=== PATIENT | female | born 1980 | race Caucasian/White ===

== ENCOUNTER → 2020-02-24 13:56 | Outpatient (CLI) | payer OTHER, SELFPAY ==
[2020-02-26 17:17] LABS: COVID19 Sendout Not Detected (Not Detect)
== END ==
PROVIDERS: PCP Family Medicine; Visit Provider Nurse Practitioner
DX: Z11.59 Encounter for screening for other viral diseases (principal)
CPT/HCPCS: 87635

== ENCOUNTER 2020-02-27 12:14 | Outpatient (CLI) | payer OTHER, SELFPAY ==
[2020-02-27] VITALS (12 sets, daily range): BP systolic 98–139; BP diastolic 65–94; PULSE 62–96; RESP 16–23; TEMP 36.2; O2SAT 99–100
--- NOTE | 2020-02-27 12:16 | DI.RAD.S_ITS ---
PROCEDURE: PAIN L/S TRANSFORAMINAL INJECT INDICATIONS: SPONDYLOSIS COMPARISON: [facility], [facility], MRI L-SPINE W/O CONTRAST, 12/16/2019, 7:34. [facility], [facility], XR L-SPINE 4-6V, 11/26/2019, 11:22. FINDINGS: Fluoroscopic spot filming was performed to verify placement of a spinal needle at the L5-S1 level, as labeled on the films. Appropriate location of the needle tip was confirmed by injection of iodinated contrast. IMPRESSION: No significant intraprocedural abnormality. Dictated by: Julio Benedict M.D. on 02/27/2020 at 13:29 Approved by: Julio Benedict M.D. on 02/27/2020 at 13:35
[2020-02-27] MEDS: fentaNYL 100 MCG/2 ML INJ 50 MCG IV (13:21)
[2020-02-27] MEDS: MIDAZOLAM 5 MG/5 ML VIAL IV (13:21)
[2020-02-27] MEDS: IOPAMIDOL 15 ML VIAL 3 ML INJ (13:27)
[2020-02-27] MEDS: BUPIVACAINE 0.25% (PF) VIAL 2 ML INJ (13:28)
[2020-02-27] MEDS: BETAMETHASONE 30 MG/5 ML MDV 6 MG INJ (13:28)
[2020-02-27] MEDS: DEXAMETHASONE 10 MG/ML VIAL 20 MG INJ (13:29)
--- NOTE | 2020-02-27 13:36 | PM.PROC.IR.1 ---
Date/Time/Diagnoses Date of procedure: 02/27/20 Time of procedure: 13:36 Pre-procedure diagnosis: 1. FORAMINAL STENOSIS WITH LE SYMPTOMS Post-procedure diagnosis: same Procedure Notes Procedure: 1. FLUOROSCOPICALLY GUIDED CONTRAST CONTROLLED TRANSFORAMINAL EPIDURAL STEROID INJECTION - RIGHT L5/S1 TFESI Indications: Vivi is referred by for treatment of Foraminal Stenosis with right LE Symptoms Physician: Ty Mock Total Fluoroscopy time (seconds): 10 Total sedation minutes: 13 Complications: none Procedure in detail & Post-procedure care: FINDINGS Foraminal Nerve Root Compression secondary to disc disease and facet hypertrophy DESCRIPTION OF PROCEDURE Following review of allergy and review of potential side effects and complications, including, but not necessarily limited to, infection, allergic reaction, local tissue breakdown, stroke, temporary or permanent nerve injury, paralysis, and possible , the patient indicated that the patient understood and agreed to proceed. An informed consent document was signed by the patient, witnessed by a nurse, and placed in the patient's chart. Additionally, other treatment options including medications, modalities, and physical therapy were reviewed with the patient. After review of previous anaesthesic history and IV conscious sedation the patient was deemed safe to proceed with today?s procedure with IV conscious sedation as ASA class II designation. Safety time-out was performed to confirm patient ID, procedure to be performed and site of procedure. IV sedation was accomplished with a combination of 2mg of Versed and 50mcg of Fentanyl was administered by the RN after DO order, titrated to patient comfort during the course of the procedure while the patient remained responsive to all verbal commands In the prone position following sterile prep and drape of the lumbar region, the right L5/S1 posterior neuroforamen was identified fluoroscopically. The skin was anesthetized via a 25-gauge 1.5-inch needle with 1% lidocaine solution. At this point, a 25-gauge 3.5-inch spinal needle was atraumatically introduced and advanced under fluoroscopic guidance through the posterior right L5/S1 neuroforamen to approximately the anterior aspect of the canal. Depth was confirmed on lateral view. Following negative aspiration, injection of approximately 1.5cc of Isovue 200 under live fluoroscopy in the AP view confirmed excellent flow along the nerve root, into the epidural space without vascular or intrathecal uptake observed Radiological data, including multiple fluoroscopic views of the lumbosacral spine, reveal a spinal needle at the right L5/S1 posterior neuroforamen. Subsequent views show flow of contrast material flowing superiorly and inferiorly along the nerve root confirming epidural flow. Subsequently, a test dose of 1.5cc of 1% lidocaine solution was administered and patient was observed for two minutes for signs or symptoms of complications, including abdominal pain, shortness of breath, bilateral upper or lower extremity weakness, nausea and vomiting, prior to steroid injection. At this point, a total of 3cc or 20mg of dexamethasone and 6mg betamethasone was injected without incident. The procedure tolerated the procedure well without signs or symptoms of complications prior to transfer to the recovery area continued monitoring without incident. The patient was then transferred to the recovery area where they were observed for an appropriate time after the injection. The patient reported a VAS score of 7 prior to the procedure and a post-procedure VAS of 0. POST OP INSTRUCTIONS The patient was provided a Pain Log to continue to record their response to the target-specific procedure prior to follow-up visit with their referring physician. Additionally, specific post-injection care instructions and a contact number to our office were provided if concerns arise regarding possible complications associated with the procedure are suspected.
--- NOTE | 2020-02-27 14:40 | PC.NURSE ---
Dr Mock at bedside for patient. VSS, no nausea. balanced and steady gait tested. DC home.
== END 2020-02-27 14:40 | disposition home or self-care (01) ==
PROVIDERS: PCP Family Medicine; Referring Provider Physical Medicine & Rehabilitation; Visit Provider Physical Medicine & Rehabilitation
DX: M48.07 Spinal stenosis, lumbosacral region (principal); M51.17 Intervertebral disc disorders with radiculopathy, lumbosacral region
CPT/HCPCS: 64483; 99152; J0702; J1100; J2250; J3010

== ENCOUNTER → 2020-06-23 12:48 | Outpatient (CLI) | payer OTHER, SELFPAY ==
[2020-06-23 14:39] LABS: COVID19 -Nasal RAPID Negative (Negative)
== END ==
PROVIDERS: PCP Family Medicine; Visit Provider Physical Medicine & Rehabilitation
DX: Z01.812 Encounter for preprocedural laboratory examination (principal); Z20.822 Contact with and (suspected) exposure to COVID-19
CPT/HCPCS: 87635; C9803

== ENCOUNTER 2020-06-25 14:48 | Outpatient (CLI) | payer OTHER, SELFPAY ==
[2020-06-25] VITALS (7 sets, daily range): BP systolic 119–142; BP diastolic 68–83; PULSE 63–69; RESP 14–21; TEMP 36.8; O2SAT 99–100
--- NOTE | 2020-06-25 14:50 | DI.RAD.S_ITS ---
PROCEDURE: PAIN L/S FACET INJ/BLK 1ST LAURENT COMPARISON: None. INDICATIONS: SPONDYLOSIS FINDINGS: Access needles identified at the bilateral L4-L5 and L5-S1 facet joints. IMPRESSION: Access needles at the L4-L5 and L5-S1 facet joints. Dictated by: Michelle Sullivan MD, PhD on 06/25/2020 at 16:17 Approved by: Michelle Sullivan MD, PhD on 06/25/2020 at 16:18
[2020-06-25] MEDS: ONDANSETRON 4 MG/2 ML INJ IV (15:41)
[2020-06-25] MEDS: MIDAZOLAM 5 MG/5 ML VIAL IV (15:41)
[2020-06-25] MEDS: IOPAMIDOL 15 ML VIAL 3 ML INJ (15:46)
[2020-06-25] MEDS: BETAMETHASONE 30 MG/5 ML MDV 12 MG INJ (15:47)
[2020-06-25] MEDS: BUPIVACAINE 0.5% (PF) VIAL 5 ML INJ (15:47)
[2020-06-25] MEDS: LIDOCAINE 1% 20 ML 10 ML INJ (15:47)
--- NOTE | 2020-06-25 16:03 | P.PCN_ITS ---
Date/Time/Diagnoses Date of procedure: 06/25/20 Time of procedure: 16:03 Pre-procedure diagnosis: 1. FACET ARTHROPATHY 2. AXIAL LBP 3. MULTILEVEL DDD Post-procedure diagnosis: same Procedure Notes Procedure: 1. FLUOROSCOPICALLY GUIDED CONTRAST CONTROLLED FACET JOINT INJECTIONS BILATERAL L4/5, L5/S1 Indications: Vivi is referred by Dr. Givens for treatment of Axial LBP Physician: Ty Mock Total Fluoroscopy time (seconds): 12 Total sedation minutes: 16 Complications: none Procedure in detail & Post-procedure care: FINDINGS Multilevel Facet Arthropathy with Clinically significant axial LBP DESCRIPTION OF PROCEDURE Fluoroscopically guided, contrast-controlled bilateral L4/5, L5/S1 facet joint injections. Following review of allergy and review of potential side effects and complications, including, but not necessarily limited to, infection, allergic reaction, local tissue breakdown, stroke, temporary or permanent nerve injury, paralysis, and possible , the patient indicated that the patient understood and agreed to proceed. An informed consent document was signed by the patient, witnessed by a nurse, and placed in the patient's chart. Additionally, other treatment options including medications, modalities, and physical therapy were reviewed with the patient. After review of previous anaesthesic history and IV conscious sedation the patient was deemed safe to proceed with today?s procedure with IV conscious sedation as ASA class II designation. Safety time-out was performed to confirm patient ID, procedure to be performed and site of procedure. IV sedation was accomplished with a combination of 3mg of Versed was administered by the RN after DO order, titrated to patient comfort during the course of the procedure while the patient remained responsive to all verbal commands In the prone position, following sterile prep and drape of the lumbar region, the posterior aspect of the L4/5, L5/S1 facet joints were identified fluoroscopi martinez. The skin was anesthetized via a 25-gauge 1.5inch needle with 1% lidocaine solution into the corresponding facet joints. At this point, a 22- gauge 3.5-inch spinal needle was atraumatically introduced and advanced under fluoroscopic guidance into the corresponding facet joints. Following negative aspiration, injections of approximately 0.2cc of Isovue 200 confirmed interarticular placement without vascular uptake. The identical procedure was then performed at the L4/5, L5/S1 facet joints on the left. Radiological data, including multiple fluoroscopic views of the lumbosacral spine, reveal a spinal needle at the L4/5, L5/S1 facet joints bilaterally. Subsequent views show flow of contrast material both superiorly and inferiorly within the joint space without vascular or intrathecal uptake. At this point, a total of 0.5cc including a mixture of 0.25cc Marcaine and 0.25cc betamethasone was injected without complication into each of the corresponding facet joints. The patient tolerated the procedure well without signs or symptoms of complications prior to transfer to the recovery area continued monitoring without incident. The patient was then transferred to the recovery area where they were observed for an appropriate period of time after the injection. The patient reported a VAS score of 7 prior to the procedure and a post- procedure VAS of 0. POST OP INSTRUCTIONS The patient was provided a Pain Log to continue to record their response to the target-specific procedure prior to follow-up visit with their referring physician. Additionally, specific post-injection care instructions and a contact number to our office were provided if concerns arise regarding possible complications associated with the procedure are suspected.
== END 2020-06-25 16:23 | disposition home or self-care (01) ==
PROVIDERS: PCP Family Medicine; Referring Provider Physical Medicine & Rehabilitation; Visit Provider Physical Medicine & Rehabilitation
DX: M47.817 Spondylosis without myelopathy or radiculopathy, lumbosacral region (principal); M47.816 Spondylosis without myelopathy or radiculopathy, lumbar region; M54.5 Low back pain; M51.36 Other intervertebral disc degeneration, lumbar region; M51.37 Other intervertebral disc degeneration, lumbosacral region
CPT/HCPCS: 64493; 64494; 99152; J0702; J2250; J2405; J3010

== ENCOUNTER → 2021-01-25 07:45 | Outpatient (CLI) | payer OTHER, SELFPAY ==
[2021-01-25 14:27] LABS: COVID19 -Nasal RAPID Negative (Negative)
== END ==
PROVIDERS: PCP Family Medicine; Visit Provider Physical Medicine & Rehabilitation
DX: Z20.822 Contact with and (suspected) exposure to COVID-19 (principal)
CPT/HCPCS: 87635; C9803

== ENCOUNTER 2021-01-26 13:42 | Outpatient (CLI) | payer OTHER, SELFPAY ==
[2021-01-26] VITALS (9 sets, daily range): BP systolic 116–165; BP diastolic 72–102; PULSE 66–87; RESP 8–21; TEMP 36.9; O2SAT 97–100
--- NOTE | 2021-01-26 13:46 | DI.RAD.S_ITS ---
PROCEDURE: PAIN L/S FACET INJ/BLK 1ST LAURENT COMPARISON: [facility], XA, PAIN L/S FACET INJ/BLK 1ST LAURENT, 06/25/2020, 15:45. INDICATIONS: SPONDYLOSIS FINDINGS: Bilateral L4, L5 and S1 needle localization has been performed for medial branch block ablation procedures bilaterally, 6 separate sites, involving L4, L5 and S1 nerve roots. IMPRESSION: Successful needle tip localization for bilateral medial branch block procedures. Dictated by: Delmer Waldrop M.D. on 01/26/2021 at 15:38 Approved by: Delmer Waldrop M.D. on 01/26/2021 at 15:38
[2021-01-26] MEDS: ONDANSETRON 4 MG/2 ML INJ IV (14:30)
[2021-01-26] MEDS: MIDAZOLAM 5 MG/5 ML VIAL IV (14:35)
[2021-01-26] MEDS: fentaNYL 100 MCG/2 ML INJ 50 MCG IV (14:35)
[2021-01-26] MEDS: LIDOCAINE 1% 20 ML 10 ML INJ (14:39)
[2021-01-26] MEDS: BUPIVACAINE 0.5% (PF) VIAL 10 ML INJ (14:40)
[2021-01-26] MEDS: IOPAMIDOL 15 ML VIAL 3 ML INJ (14:41)
--- NOTE | 2021-02-02 08:09 | P.PCN_ITS ---
Date/Time/Diagnoses Date of procedure: 01/26/21 Time of procedure: 14:30 Pre-procedure diagnosis: 1. FACET ARTHROPATHY Post-procedure diagnosis: same Procedure Notes Procedure: 1. BILATERAL- L4, L5 and S1 DIAGNOSTIC MB BLOCKS with LA Anesthetic Indications: Vivi is referred by Dr. Givens for treatment of Bilateral Axial LBP. Physician: Ty Mock Total Fluoroscopy time (seconds): 14 Total sedation minutes: 18 Complications: none Procedure in detail & Post-procedure care: DESCRIPTION OF PROCEDURE Fluoroscopically guided, contrast-controlled bilateral L4, L5 and S1 medial branch blocks with 0.5cc of 0.5% Marcaine. Following review of allergy and review of potential side effects and complications, including, but not necessarily limited to, infection, allergic reaction, local tissue breakdown, nerve injury, paralysis, stroke and possible , the patient indicated that the patient understood and agreed to proceed. An informed consent document was signed by the patient, witnessed by a nurse, and placed in the patient's chart. After review of previous anaesthesic history and IV conscious sedation the patient was deemed safe to proceed with today's procedure with IV conscious sedation as ASA class II designation. Safety time-out was performed to confirm patient ID, procedure to be performed and site of procedure. IV sedation was accomplished with a combination of 3mg of Versed and 50mcg of Fentanyl was administered by the RN after DO order, titrated to patient comfort during the course of the procedure while the patient remained responsive to all verbal commands In the prone position, following sterile prep and drape of the lumbar region, the right L4, L5 and S1 anatomical location of the medial branch of the dorsal ramus was identified fluoroscopically. Subsequently an anesthetic skin wheal using 1% lidocaine solution was initiated at each of the anatomical spots. Subsequently then a 22-gauge 3.5-inch spinal needle was atraumatically introduced and advanced under fluoroscopic guidance at each of the corresponding sites at the right L4, L5 and S1 MB. After negative aspiration, 0.2cc of Isovue 200 was injected, confirming placement without vascular or intrathecal uptake. Subsequently then 0.5cc of 0.5% Marcaine solution was injected at each of the corresponding sites at the right L4, L5 and S1 medial branch locations. The identical procedure was replicated on the left. The patient tolerated the procedure well without signs or symptoms of complications prior to transfer to the recovery area continued monitoring without incident. Post-procedure, the patient was monitored initiating provocative activities to measure the amount of relief from block of the facetogenic pain. The patient reported a VAS of 7 prior to the procedure and a post-procedure VAS of 1. It has been a pleasure to assist in the diagnostic and therapeutic care of your patient. POST OP INSTRUCTIONS The patient was provided with a Pain Log to complete over the next several hours and subsequent days prior to the patient's follow up with the ordering physician. If the patient has drive shaft and steering post repairer relief to the solution applied, then they may be a candidate for medial branch rhizotomy. The patient is aware, was provided, once again, with a Pain Log and will follow up with the referring physician for review and clinical correlation
== END 2021-01-26 15:19 | disposition home or self-care (01) ==
LOC: RAD 13:46
PROVIDERS: PCP Family Medicine; Referring Provider Family Medicine; Visit Provider Physical Medicine & Rehabilitation
DX: M47.816 Spondylosis without myelopathy or radiculopathy, lumbar region (principal); M54.5 Low back pain; M47.817 Spondylosis without myelopathy or radiculopathy, lumbosacral region
CPT/HCPCS: 64493; 64494; 99152; J2250; J2405; J3010

== ENCOUNTER → 2021-07-26 12:28 | Outpatient (CLI) | payer OTHER, SELFPAY ==
[2021-07-26 14:38] LABS: COVID19 -Nasal RAPID Negative (Negative)
== END ==
PROVIDERS: PCP Family Medicine; Visit Provider Physical Medicine & Rehabilitation
DX: Z20.822 Contact with and (suspected) exposure to COVID-19 (principal)
CPT/HCPCS: 87635; C9803

== ENCOUNTER 2021-07-27 14:53 | Outpatient (CLI) | payer OTHER, SELFPAY ==
[2021-07-27] VITALS (7 sets, daily range): BP systolic 110–141; BP diastolic 70–98; PULSE 62–80; RESP 12–20; TEMP 36.8; O2SAT 97–100
--- NOTE | 2021-07-27 14:57 | DI.RAD.S_ITS ---
PROCEDURE: PAIN L INTERLAMINAR/CAUDAL INJ INDICATIONS: SPONDYLOSIS COMPARISON: [facility], XA, PAIN L/S FACET INJ/BLK 1ST LAURENT, 01/26/2021, 14:36. FINDINGS: Fluoroscopic spot filming was performed to verify placement of a spinal needle at the L5-S1 level, as labeled on the films. Appropriate location of the needle tip was confirmed by injection of iodinated contrast. IMPRESSION: No significant intraprocedural abnormality. Dictated by: Julio Benedict M.D. on 07/27/2021 at 15:10 Approved by: Julio Benedict M.D. on 07/27/2021 at 15:10
[2021-07-27] MEDS: MIDAZOLAM 5 MG/5 ML VIAL IV (15:25)
[2021-07-27] MEDS: fentaNYL 100 MCG/2 ML INJ 50 MCG IV (15:25)
[2021-07-27] MEDS: BUPIVACAINE 0.25% (PF) VIAL 2 ML INJ (15:28)
[2021-07-27] MEDS: IOPAMIDOL 15 ML VIAL 3 ML INJ (15:28)
[2021-07-27] MEDS: BETAMETHASONE 30 MG/5 ML MDV 6 MG INJ (15:28)
[2021-07-27] MEDS: DEXAMETHASONE 10 MG/ML VIAL 20 MG INJ (15:29)
--- NOTE | 2021-07-27 15:38 | P.PCN_ITS ---
Date/Time/Diagnoses Date of procedure: 07/27/21 Time of procedure: 15:38 Pre-procedure diagnosis: 1. HNP WITH RADICULAR FEATURES, 2. MULTILEVEL CENTRAL STENOSIS THIS PROCEDURE IS FOUND TO MEET THE GOVERNOR'S PROCLAMATION 20-24.2 REGARDING NON URGENT PROCEDURES. THIS PATIENT MEETS MULTIPLE CRITERIA FOR THE PROCEDURE INCLUDING CONTINUING OR WORSENING OF SIGNIFICANT OR SEVERE PAIN, COMBINED WITH FURTHER DETERIORATION OF THE PATIENT'S CONDITION OR OVERALL HEALTH WELL DELAY IN TREATMENT WOULD BE EXPECTED TO RESULT IN LESS POSITIVE ULTIMATE MEDICAL OUTCOME. THEREFORE THE DECISION TO PERFORM THE PROCEDURE IN AN OUTPATIENT HOSPITAL SETTING IS FOUND TO BE IN ACCORDANCE WITH GUIDELINES OF THE PROCLAMATION. Post-procedure diagnosis: same Procedure Notes Procedure: 1. FLUOROSCOPICALLY GUIDED CONTRAST CONTROLLED INTERLAMINAR EPIDURAL STEROID INJECTION - L5/S1 Indications: Vivi is referred by Dr. Givens for treatment of Bilateral Foraminal Stenosis L>R LE symptoms. Physician: Ty Mock Total Fluoroscopy time (seconds): 4 Total sedation minutes: 7 Complications: none Procedure in detail & Post-procedure care: FINDINGS Multilevel Central Spinal Stenosis with Nerve Root Compression DESCRIPTION OF PROCEDURE Fluoroscopically guided, contrast-controlled L5/S1 translaminar epidural steroid injection. Following review of allergy and review of potential side effects and complications, including, but not necessarily limited to, infection, allergic reaction, local tissue breakdown, temporary as well as permanent nerve injury, paralysis, stroke and possible , the patient indicated that the patient understood and agreed to proceed. An informed consent document was signed by the patient, witnessed by a nurse, and placed in the patient's chart. Additionally, other treatment options including modalities, medications, and physical therapy were reviewed with the patient. After review of previous anaesthesic history and IV conscious sedation the p atient was deemed safe to proceed with today?s procedure with IV conscious sedation as ASA class II designation. Safety time-out was performed to confirm patient ID, procedure to be performed and site of procedure. IV sedation was accomplished with a combination of 3mg of Versed and 50mcg of Fentanyl administered by the RN after DO order, titrated to patient comfort during the course of the procedure while the patient remained responsive to all verbal commands. In the prone position, following sterile prep and drape of the lumbar region, the L5/S1 translaminar space was identified fluoroscopically. The skin was anesthetized via a 25-gauge, 1.5-inch needle with 1% lidocaine solution. At this point, a 22-gauge short bevel spinal needle was atraumatically introduced and advanced under fluoroscopic guidance into the region of the L5/S1 translaminar space. Depth was confirmed on lateral view. Radiological data, including multiple fluoroscopic views of the lumbar spine, reveal a spinal needle at the L5/S1 translaminar space. Lateral views then show placement of the needle in the epidural space. Subsequent views show contrast material flowing superiorly and inferiorly in the epidural space. No vascular or intrathecal uptake is observed. At this point, using loss of resistance technique with saline and air, the epidural space was entered. This was confirmed following negative aspiration with injection of approximately 1.5cc of Isovue 200, showing excellent epidural flow without vascular or intrathecal uptake. At this point, 1 cc of 1% lidocaine solution combined with 3cc or 20mg of dexamethasone and 6mg of betamethasone was injected without incident. The patent tolerated the procedure without signs of symptoms of complications prior to transfer to the recovery area for further monitoring. The patient was then transferred to the recovery area where they were observed for an appropriate period of time after the injection. The patient reported a VAS score of 6 prior to the procedure and a post-procedure VAS of 0. POST OP INSTRUCTIONS The patient was provided a Pain Log to continue to record their response to the target-specific procedure prior to follow-up visit with their referring physician. Additionally, specific post-injection care instructions and a contact number to our office were provided if concerns arise regarding possible complications associated with the procedure are suspected.
== END 2021-07-27 15:59 | disposition home or self-care (01) ==
PROVIDERS: PCP Family Medicine; Referring Provider Physical Medicine & Rehabilitation; Visit Provider Physical Medicine & Rehabilitation
DX: M51.17 Intervertebral disc disorders with radiculopathy, lumbosacral region (principal); M48.07 Spinal stenosis, lumbosacral region
CPT/HCPCS: 62323; J0702; J1100; J2250; J3010

== ENCOUNTER → 2021-12-24 12:20 | Outpatient (CLI) | payer OTHER, SELFPAY ==
[2021-12-24 12:46] LABS: COVID19 -Nasal RAPID Negative (Negative)
== END ==
PROVIDERS: PCP Family Medicine; Referring Provider Orthopaedic Surgery Orthopaedic Surgery of the Spine; Visit Provider Orthopaedic Surgery Orthopaedic Surgery of the Spine
DX: Z01.812 Encounter for preprocedural laboratory examination (principal); Z20.822 Contact with and (suspected) exposure to COVID-19
CPT/HCPCS: 87635; C9803

== ENCOUNTER 2021-12-29 08:25 | Observation (INO) | payer OTHER, SELFPAY ==
[2021-12-22 12:59] VITALS: BMI 22.6
[2021-12-27] VITALS (18 sets, daily range): BP systolic 103–161; BP diastolic 6–101; PULSE 51–113; RESP 9–18; TEMP 36–37.3; O2SAT 92–100; BMI 22.6
--- NOTE | 2021-12-27 | DI.RAD.S_ITS ---
PROCEDURE: XR LUMBAR SPINE 2-3V INDICATIONS: L5-S1 TLIF TECHNIQUE: 2 intraoperative low resolution fluoroscopic spot films were obtained COMPARISON: None. FINDINGS: Fluoroscopic spot films show L4-5 posterior ritika and screw instrumentation in good position. Discectomy and fusion cage also in good position. IMPRESSION: Fluoroscopic guidance Approved by: Sanjiv Mondragon M.D. on 12/27/2021 at 14:41
[2021-12-27] MEDS: LACTATED RINGERS 1,000 ML 42 ML IV ×2 (07:21→10:41)
[2021-12-27] MEDS: SCOPOLAMINE 1 PATCH TOP (07:41)
--- NOTE | 2021-12-27 07:41 | PM.PREOP ---
Pre-operative Note COVID-19 COVID-19 status: Negative Result date/Date tested (Pos, Neg/Pending): 12/26/21 Criteria for continued procedure: Expected advancement of disease process, Possibility delay results in more complex future surgery or treatment, Increased loss of function, Continuing or worsening of significant or severe pain and Deterioration of the patient's condition or overall health Interval Note History & Physical reviewed/Exam performed by Physician: Yes Changes to H&P: No
[2021-12-27] MEDS: ACETAMINOPHEN IV 1,000 MG/100 ML VIAL 400 MG IV (07:42)
--- NOTE | 2021-12-27 07:45 | SUR.PREOP ---
Discussed with Dr Puente patient history of PONV and car sickness. See new order for scop patch.
[2021-12-27] MEDS: CEFAZOLIN 2 GM/20 ML SYRINGE IV ×2 (08:00→16:58)
--- NOTE | 2021-12-27 08:32 | SUR.OPER ---
Prone on spine table, head in foam head support, padded chest and pelvic supports, gel pad at knees, lower legs supported by pillows; nipples, genitalia and toes free of pressure, arms secured on foam padded arm boards at <90 degrees abduction. Tape over blanket at thigh secured to table.
[2021-12-27] MEDS: BUPIVACAINE LIPOSOME 266 MG/20 ML VIAL INJ (08:43)
[2021-12-27] MEDS: BUPIVACAINE 0.5% (PF) VIAL 30 ML INJ (08:44)
--- NOTE | 2021-12-27 08:50 | SUR.OPER ---
0.5% BUPIVICAINE USED WITH .1MG EPINEPHRINE
--- NOTE | 2021-12-27 10:16 | PM.OP.1 ---
Operative Date/Time/Diagnoses Date of procedure: 12/27/21 Time of procedure: 07:45 Pre-op diagnosis: 1. L5-S1 retrolisthesis 2. 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 L5-S1 Postero-lateral and posterior interbody fusion 2. L5-S1 interbody cage placement. 3. L5-S1 decompressive laminectomy with bilateral facetecomies 4. L5-S1 Posterior non-segmental instrumentation 5. Stevens of bone marrow from iliac crest 6. Utilization of microsurgical technique and operating microscope Same procedure as scheduled: Yes Indications: Patient has been having chronic back pain and worsening lumbar radiculopathy. Patient failed multiple conservative management with worsening pain weakness and numbness in her lower extremity. Patient has been having difficulty performing activity of daily living. After discussing risks benefits of treatment options, patient elected proceed with surgery. Surgeon: Joslyn Aponte Conservation Science Teacher: Thierno Goodson Click Yes if Unassisted: No Anesthesia Type: General Operative Notes Closure Type: primary Specimen(s): none sent Prosthetic devices, grafts, tissues, transplants, or devices: Globus MIS Screws, Rise cage Estimated Blood Loss (mL): 50 Blood products transfused: none Procedure in detail: Patient was seen in the preoperative area. Risks and benefits of the surgery was discussed with the patient. Informed consent was obtained from the patient and placed in the chart. Surgical site was marked. Patient was taken to the operative room. General anesthesia was administered. Prophylactic antibiotic was given to the patient less than 30 min before the incision was made. Patient was placed into a prone position on the Anthony table. Patient's back was then prepped and draped in the sterile fashion. Time-out was performed at this time. Using AP and lateral C-arm imaging the interval between L5-S1 was identified and marked on patient's back. A 2 inch incision 2 in from midline was made on the right side first. The fascia was incised in line with skin incision. Globus MARS retractors was placed inside the incision and docked onto the L5 lamina. Using microsurgical technique and operating microscope, a L5 laminectomy and L5-S1 facetectomy was performed using a Kerrison rongeur. Patient was found have severe neural foraminal stenosis and required a total facetectomy for decompression which rendered L5-S1 grossly unstable and required a fusion procedure at the same time. The disc space at L5-S1 was identified. And a total diskectomy was performed at L5-S1 level. The endplates were decorticated using a rasp and shaver. The total diskectomy and decortication was performed at L5-S1 level in order to to accomplish a L5-S1 fusion. The local bone from the laminectomy and facetectomy was saved for local bone grafting. After the total diskectomy and decortication was completed, Trifecta bone graft material was combined with local bone that was harvested earlier. At this time, a separate skin is incision was made over the iliac crest. A Jamshidi needle was inserted into the iliac crest through a separate skin incision. 5 cc of bone marrow aspiration was obtained through the separate skin incision using a Jamshidi needle from the iliac crest. The bone marrow aspiration was combined with local bone and the Trifecta bone grafting material. The bone grafting material was placed into the L5-S1 interbody space along with a expandable cage. The cage was expanded to its maximum height using the torque limiting screwdriver. At this time a mirror image incision was made on the left side. The fascia was incised in line with the skin incision. Globus MARS retractor was inserted and docked onto the L5-S1 posterolateral gutter. Using the power drill, posterior-lateral decortication was performed at L5-S1 level until bleeding cortical bone was identified. The remaining bone grafting material was placed into the L5-S1 posterior lateral gutter he order to accomplish posterolateral fusion at the L5-S1 level. Using the double C-arm technique, pedicle screws were placed into the L5-S1 pedicles bilaterally. This was done by placing the Jamshidi needle into the pedicles, then placing the guidewires over the Jamshidi needle, and finally placing the cannulated screws over the guidewires bilaterally. After the pedicle screws were placed, 2 titanium rods was locked into the heads of the pedicle screws using locking caps and torque limiting screwdriver. After all the hardware was placed, and confirmed with AP and lateral C-arm imaging, the wound was then irrigated with sterile normal saline and packed with Ray-Driss gauze for 3 min to accomplish hemostasis. After the gauze was removed the deep fascia was closed with #1 Vicryl suture. The subcutaneous layer was closed with 2-0 Vicryl. The skin was closed with skin georgette. Patient tolerated the procedure well. There were no complications. Complications: none Post-operative Condition: stable Disposition: PACU Plan for aftercare: Admit to inpatient hospital
[2021-12-27] MEDS: HYDROMORPHONE 2 MG INJ IV ×4 (10:20→10:48)
[2021-12-27] MEDS: hydrOXYzine 50 MG/ML INJ IM (10:27)
[2021-12-27] MEDS: OXYCODONE IR 5 MG TABLET PO (10:59)
--- NOTE | 2021-12-27 11:03 | SUR.PHASEI ---
Patient was tearful, crying, swearing r/t back pain. Medicated by Dr. Puente on arrival. Medication and reassurances given to achieve pain management. Patient currently quiet, resting with eyes closed. Dr Puente has checked on her multiple times and saw that her pain level was decreasing.
--- NOTE | 2021-12-27 11:27 | SUR.PHASEI ---
Report given to Ashley Terrazas. Patient quiet, dozing intermittently, arouses easily to voice.
--- NOTE | 2021-12-27 11:35 | SUR.PHASEI ---
1132 Patient calm, comfortable, expressing appreciation for care. VSS. Clothing bag to the room with transport staff.
--- NOTE | 2021-12-27 11:47 | PC.NURSE ---
admit pt to AC from PACU at 1140. VSS alert and oriented. CMS+. Surgical dressing to back CDI. pt oriented to room and call light. bed alarm on.
[2021-12-27] MEDS: SODIUM CHLORIDE 0.9% 1,000 ML 100 ML IV (12:44)
[2021-12-27] MEDS: OXYCODONE IR 5 MG TABLET 10 MG PO ×3 (14:18→21:59)
--- NOTE | 2021-12-27 15:42 | OT.IPNOTE ---
Per nursing aid pt just receiving pain medications and requesting to sleep. To check on pt tomorrow for OT eval.
--- NOTE | 2021-12-27 16:33 | PT-IP ANOTE ---
Received PT orders and reviewed the chart. Attempted to meet with pt for PT eval ~1600 but pt had received pain meds and was sleeping soundly. Will follow up Monday AM.
[2021-12-27] MEDS: SENNOSIDES 8.6 MG TABLET 17.2 MG PO (21:01)
[2021-12-27] MEDS: DOCUSATE 100 MG CAPSULE PO (21:01)
[2021-12-28] VITALS: BP 106/54; PULSE 61; RESP 16; TEMP 36.7; O2SAT 100
[2021-12-28] MEDS: ACETAMINOPHEN 325 MG TABLET 650 MG PO ×2 (00:27→20:20)
[2021-12-28] MEDS: CEFAZOLIN 2 GM/20 ML SYRINGE IV (00:27)
[2021-12-28] MEDS: OXYCODONE IR 5 MG TABLET 10 MG PO ×4 (03:38→15:13)
[2021-12-28 04:36] VITALS: BP 99/51; PULSE 73; RESP 20; TEMP 36.8; O2SAT 98
[2021-12-28] MEDS: DOCUSATE 100 MG CAPSULE PO ×2 (07:29→20:20)
[2021-12-28 08:30] VITALS: BP 100/65; PULSE 73; RESP 18; TEMP 36.4; O2SAT 98
[2021-12-28 08:49] LABS: Hematocrit 33.6 % (36-46); Hemoglobin 11.5 g/dL (12.0-16.0)
--- NOTE | 2021-12-28 10:34 | OT.IP.EVAL ---
Current Diagnoses Spondylolisthesis, lumbosacral region (12/27/21) Other intervertebral disc displacement, lumbar region (12/27/21) Surgery Performed Operation Date: 12/27/21 07:45 Actual Procedures p L5-S1 TLIF - Joslyn Aponte MD Past Medical History (Last Reviewed 12/28/21 @ 12:28 by Ade Baird PA-C) Anesthesia Anxiety delivery delivered COVID-19 virus infection (10/11/21) Facet arthropathy, lumbar Gestational diabetes Herniated nucleus pulposus, L5-S1, right Migraines Spondylolisthesis Trigger finger of both hands Surgical History (Last Reviewed 12/28/21 @ 12:28 by Ade Baird PA-C) S/P epidural steroid injection S/P wisdom tooth extraction Status post Mohs surgery Status post tonsillectomy and adenoidectomy Occupational Therapy Inpatient Evaluation/Re-Eval M1 PT/OT-IP Prior Functional Status Start: 12/28/21 11:14 Freq: Status: Active Protocol: Document 12/28/21 12:59 [facility] (Rec: 12/28/21 13:15 [facility] [id number]) Medical Review Prior Functional Status Medical History Reviewed Yes Mobility and Gait Independent Activities of Daily Living and IADL's Independent Prior Functional Level (Other details) Mother of 2 younger children. . Completely independent with mobility. Social History Household Members spouse,children Living Arrangements House Number of Floors (Floors) Two Floors Number of Stairs To Enter/Railing? 2 steps with no rails 2 story home, bed/bath upstairs, railing bilaterally Home Environment High Toilet,Walk in Shower Home Equipment Straight Cane,Crutches,Hand Held Shower M2 OT-IP Current Condition Start: 12/28/21 12:59 Freq: Status: Active Protocol: Document 12/28/21 12:59 [facility] (Rec: 12/28/21 13:15 [facility] [id number]) Occupational Therapy Current Condition Current Condition Evaluation Date 12/28/21 Treatment Diagnosis s/p L5-S1 TLIF Diagnosis Onset Date 12/27/21 Post Operative Precautions Lumbar Precautions Log Roll,No Twisting,Limit Bending,Lifting Restriction of 10 lbs,Gait Belt above Incisional Area M3 OT- IP Subjective and Pain Start: 12/28/21 12:59 Freq: Status: Active Protocol: Document 12/28/21 12:59 [facility] (Rec: 12/28/21 13:15 [facility] [id number]) OT- Subjective Occupational Therapy Visit Type Type Initial Evaluation Visit Start Time 10:08 Visit Stop Time 10:34 Total Visit Minutes 26 Occupational Therapy Visit Comments Patient Comments Pt willing to get up to work with OT and pt's in the room for caregiver training . Patient/Caregiver Goals TO go home. OT Pain Assessment Pain When Pain Assessed At Rest Pain Present Pain Present Pain Reported Location Lower Back Intensity 6 Scale Used Numeric (0 - 10) M4 OT- IP ADL's Start: 12/28/21 12:59 Freq: Status: Active Protocol: Document 12/28/21 12:59 [facility] (Rec: 12/28/21 13:15 [facility] [id number]) OT [id number] Comments OT Self-Feeding Comments NOt at meal time. OT ADL-Grooming General Evaluation Grooming Ability Standby Assistance Areas Needing Assistance Retrieving/Set-up of Grooming Items Comments OT Grooming Comments While standing with FWW. OT ADL-Oral Care General Eval Oral Care Ability Standby Assistance Areas of Assistance Retrieving/Set-Up of Items Comments Oral Care Comments VC to hinge at her hips versus spit into as cup to best follow her back precautions. OT ADL-Dressing General Eval Lower Body Dressing Ability Standby Assistance Comments OT Dressing Comments Pt able to doff socks and nathalia socks with rn hedis. Pt's to be able to assist her at home initially. OT ADL-Toileting Comments OT Toileting Comments Pt has a bidet at home. Suggested to wears pads at night and limit water intake later in the day. In addition to have her assist her at night to the bathroom initially. OT ADL-Bathing Comments OT Bathing Comments Pt not wanting to shower at this time. M5 OT- IP IADL's Start: 12/28/21 12:59 Freq: Status: Active Protocol: Document 12/28/21 12:59 [facility] (Rec: 12/28/21 13:15 [facility] [id number]) OT-Instrumental Activities of Daily Living Home Safety Awareness Awareness of Need for Assistance at Home Good Awareness Home Safety Comments Pt has a supportive to be able to assist with her needs at home. M6 OT- IP Functional Cognition Start: 12/28/21 12:59 Freq: Status: Active Protocol: Document 12/28/21 12:59 [facility] (Rec: 12/28/21 13:15 [facility] [id number]) Cognitive Factors Limiting Selfcare Function Cognitive Ability Level of Alertness Alert Patient Orientation Name,Place,Situation Attention Span Ability Capable of Focused Attention, Capable of Sustained Attention Ability to Follow Commands Able to Follow One Step Commands Cognitive Comments Cognitive Assessment Comments Pt able to follow commands for all ADL and functional mobility needs. OT- Vision and Hearing OT- Hearing Assessment OT- Hearing Assessment Hearing Impaired M7 OT- IP Mobility and Balance Start: 12/28/21 12:59 Freq: Status: Active Protocol: Document 12/28/21 12:59 [facility] (Rec: 12/28/21 13:15 [facility] [id number]) OT- Bed Mobility Assessment Sit to Supine Sit to Supine Assist Moderate Assistance OT-Transfer Assessment Sit to and From Stand Sit to and from Stand Minimal Assistance Transfers Transfer Ability Standby Assistance,Contact Guard Assistance Technique Transfer Destination Bed Transfer Technique Stand Step Pivot Devices Transfer Assistive Devices Gait Belt,Front Wheeled Walker Comments Mobility Comments MODA for bed mobility needs and needing cues for her how to assist especially during log rolling needs. OT- Balance Assessment Sitting Balance and Reactions Static Sitting Balance Ability Good Dynamic Sitting Balance Ability Good Standing Balance and Reactions Static Standing Balance Ability Good Dynamic Standing Balance Ability Fair M8 OT- IP Objective Assessments Start: 12/28/21 12:59 Freq: Status: Active Protocol: Document 12/28/21 12:59 [facility] (Rec: 12/28/21 13:15 [facility] [id number]) OT-Muscle Tone Assessment Muscle Tone WNL Yes M9 OT- IP Assessment and Plan Start: 12/28/21 12:59 Freq: Status: Active Protocol: Document 12/28/21 12:59 [facility] (Rec: 12/28/21 13:15 [facility] [id number]) OT Summary Assessment and Plan Potential Rehabilitation Potential Good Analytic Complexity at Evaluation Low Summary OT Impairments Pain,Strength,Balance, Functional Mobility,Dressing, Toileting,Bathing,Toilet Transfers,Shower Transfers, Activity Tolerance Progress Towards Goals Progressing Toward Goals Assessment Summary Pt low complexity and main barriers are pain and needing assist for ADl and mobility needs. Pt has a supportive to be able to assist at home when medically stable to go home. Goals Grooming Goal Independent Dressing Goal Independent Toileting Goal Independent Bathing Goal Standby Assistance Toilet Transfer Goal Independent Shower Transfer Goal Independent Days to Meet Goals 2 Frequency of Treatment Frequency Of Treatment Once a Day Treatment Plan OT Treatment Plan ADL Training,Functional Mobility,Patient/Family Education,Discharge Planning Other Treatment Recommendations and Next shower if still here Treatment Focus Discharge Recommendations OT Discharge Recommendations Home with Assistance Home Equipment Needs FWW, shower chair Transportation Needs at Discharge Private Vehicle
--- NOTE | 2021-12-28 11:42 | PT.IIE ---
Current Diagnoses Spondylolisthesis, lumbosacral region (12/27/21) Other intervertebral disc displacement, lumbar region (12/27/21) Surgery Performed Operation Date: 12/27/21 07:45 Actual Procedures p L5-S1 TLIF - Joslyn Aponte MD Surgical History (Last Updated 12/22/21 @ 13:09 by Clotilde Franks, RN) S/P epidural steroid injection S/P wisdom tooth extraction Status post Mohs surgery Status post tonsillectomy and adenoidectomy Medical History (Last Updated 12/22/21 @ 13:14 by Clotilde Franks RN) Anesthesia Anxiety delivery delivered COVID-19 virus infection (10/11/21) Facet arthropathy, lumbar Gestational diabetes Herniated nucleus pulposus, L5-S1, right Migraines Spondylolisthesis Trigger finger of both hands Physical Therapy Inpatient Evaluation/Re-Eval M1 PT/OT-IP Prior Functional Status Start: 12/28/21 11:14 Freq: Status: Active Protocol: Document 12/28/21 11:14 [facility] (Rec: 12/28/21 11:42 [facility] [id number]) Medical Review Prior Functional Status Medical History Reviewed Yes Mobility and Gait Independent Activities of Daily Living and IADL's Independent Prior Functional Level (Other details) Mother of 2 younger children. . Completely independent with mobility. Social History Household Members spouse,children Living Arrangements House Number of Floors (Floors) Two Floors Number of Stairs To Enter/Railing? none 2 story home, bed/bath upstairs, railing bilaterally Home Environment High Toilet Home Equipment Straight Cane,Crutches M2 PT-IP Current Condition Start: 12/28/21 11:14 Freq: Status: Active Protocol: Document 12/28/21 11:14 [facility] (Rec: 12/28/21 11:42 [facility] [id number]) Physical Therapy Current Condition Current Condition Evaluation Date 12/28/21 Treatment Diagnosis altered gait Onset Date 12/27/21 M3 PT-IP Subjective Start: 12/28/21 11:14 Freq: Status: Active Protocol: Document 12/28/21 11:14 [facility] (Rec: 12/28/21 11:42 [facility] [id number]) Subjective Physical Therapy Visit Type Type Initial Evaluation Visit Start Time 09:10 Visit Stop Time 09:50 Total Visit Minutes 39 Physical Therapy Visit Comments Patient Comments Pt and spouse in room. Patient Goals To discharge home today Therapy Pain Assessment Pain When Pain Assessed At Rest Pain Present Pain Present Pain Reported Location Lower Back Intensity 4 Scale Used Numeric (0 - 10) Description Aching,Cramping,Pinching M4 PT-IP Mobility and Gait Start: 12/28/21 11:14 Freq: Status: Active Protocol: Document 12/28/21 11:14 [facility] (Rec: 12/28/21 11:42 [id number]) PT-Bed Mobility Assessment Rolling Type of Rolling Log Rolling,Roll to Left Level of Assist Standby Assistance Supine to Sit Supine to Sit Minimal Assistance Sit to Supine Sit to Supine Contact Guard Assistance PT-Transfer Assessment Sit to and From Stand Sit to and from Stand Standby Assistance Equipment Transfer Assistive Device Gait Belt,Front Wheeled Walker Transfers Transfer Destination Bed,Chair,Toilet Transfer Technique Stand Pivot Transfer Ability Level of Assist Standby Assistance Comments Mobility Comments requires most assist for bed mobility due to pain and need of log roll technique. Once seated and standing she is rather independent with mobility and good awareness of precautions. Gait Assessment Gait Gait Assistance Required: Standby Assistance Distance (Feet) 125 Assistive Devices Assistive Device Gait Belt,Front Wheeled Walker Gait Deviations General Gait Pattern Decreased Stride Length,Flexed Trunk Factors Limiting Gait Function Factors Limiting Gait Function Pain Comments Gait Comments Slight diaphoresis noted with gait. Returned to room to rest . Gait was otherwise not limited. Reports she has less pain when up ambulating/ standing vs sitting. Stair Climbing Assessment Evaluation Level of Assist On Stairs Contact Guard Assistance Devices Stair Climbing Assistive Devices Left Railing,Right Railing Technique/Endurance Stair Climbing Direction Ascend and Descend Stair Climbing Technique Step to Step Number of Steps Climbed 5 Query Text: PT-Balance Assessment Sitting Balance and Reactions Static Sitting Balance Ability Good Dynamic Sitting Balance Ability Good Standing Balance and Reactions Static Standing Balance Ability Good Dynamic Standing Balance Ability Good Device Used FWW M5 PT-IP Objective Assessments Start: 12/28/21 11:14 Freq: Status: Active Protocol: Document 12/28/21 11:14 [facility] (Rec: 12/28/21 11:42 [id number]) Orientation Orientation/Cognition Level of Alertness Alert Orientation Name,Age,Birthday,Month,Date, Year,Day of Week,Place, Situation Gross Range of Motion Upper Extremity ROM Assessment Within Functional Limits Lower Extremity ROM Assessment Within Functional Limits Strength Upper Extremity Strength Assessment Within Functional Limits Lower Extremity Strength Assessment Within Functional Limits Coordination Assessment Gross Coordination Gross Coordination WNL Sensation Assessment Sensation Gross Sensation WNL Muscle Tone Muscle Tone WNL Yes M6 PT-IP Treatment Start: 12/28/21 11:14 Freq: Status: Active Protocol: Document 12/28/21 11:14 [facility] (Rec: 12/28/21 11:42 [id number]) Physical Therapy Treatment Education Education Provided Precautions,Post-Op Packet, Safety Brace Education Patient,Caregiver Other Treatments Other Treatment Performed Recommend use of FWW vs SPC or axillary crutches (maintain neutral spine). Spouse to obtain one. M7 PT-IP Assessment and Plan Start: 12/28/21 11:14 Freq: Status: Active Protocol: Document 12/28/21 11:14 [facility] (Rec: 12/28/21 11:42 [id number]) PT Summary Assessment and Plan Potential Rehabilitation Potential Excellent Status of Condition at Evaluation Stable Summary Impairments Pain,Bed Mobility,Transfers, Gait,Activity Tolerance Progress Towards Goals Progressing Toward Goals Assessment Summary Pt admitted s/p L5-S1 fusion and laminectomy. PLOF is fully independent. She walks for exercise and is the mother to two younger children. She will have her spouse and parents at home with her to assist during her recovery. Home requires 1 flight of stairs to bedroom/bathroom, with railing. CLOF: Pt is aware of spinal precautions. She is needing min A for bed mobility but after that she is just SBA for upright mobility with use of FWW. Pt was able to demonstrate transfers from EOB , commode, and chair. She was able to ambulate and manage ~5 steps. BP monitored closely throughout: supine 100/65, seated 115/60, after gait 97/ 45, after stairs 116/61. Pt and spouse provided education on spinal precautions, stair mgmt, and car transfers. Recommend d/c home when medically stable. Goals Bed Mobility Goal Independent Transfer Goal Independent Gait Goal Independent Gait Distance 200 Other Goals Pt to ascend/descend full flight of stairs with SBA Days to Meet Goals 3 Frequency of Treatment Frequency Of Treatment Twice a Day Treatment Plan Physical Therapy Treatment Plan Bed Mobility Training,Transfer Training,Gait Training, Therapeutic Exercise,Post Op Education,Discharge Planning, Neuromuscular Re-ed Precautions Lumbar Precautions Log Roll,No Twisting,Limit Bending,Lifting Restriction of 10 lbs,Gait Belt above Incisional Area Recommendations To Nursing Amount of Assist Needed Standby Assistance Discharge Recommendations PT Discharge Recommendations Home with Assistance Equipment Needed for Home Before Front wheeled walker - spouse Discharge will look into obtaining one Transportation Needs at Discharge Private Vehicle
[2021-12-28] MEDS: BISACODYL 10 MG SUPP PR (11:59)
--- NOTE | 2021-12-28 12:25 | P.DS_ITS ---
History of Present Illness History of Present Illness Date Patient Seen: 12/28/21 Time Patient Seen: 11:45 Chief complaint: Low back pain s/p TLIF Narrative: Patient is complaining of moderate to severe low back pain. She is also complaining of some abdominal pain, she is passing gas. She got up with physical therapy and had some dizziness. She has been somewhat hypotensive, overnight 99/55. She is slowly improving, and is considering going home today. Discharge Providers Provider Discharge Date: 12/28/21 Primary care physician: Alessandra Givens DO Consults: 12/27/21 11:37 Consult to Occupational Therapy Evaluate & Treat Comment: Physician Instructions: Evaluate and treat Consult to Physical Therapy Evaluate & Treat Comment: Physician Instructions: Evaluate and Treat Discharge provider: Ade Baird PA-C Summary Hospital Course Discharge Diagnosis: 1. L5-S1 retrolisthesis 2. 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 Hypotension, mildly symptomatic Hospital Course: Operative Date/Time/Diagnoses Date of procedure: 12/27/21 Time of procedure: 07:45 Procedure & Clinicians Procedure: 1. L5-S1 Postero-lateral and posterior interbody fusion 2. L5-S1 interbody cage placement. 3. L5-S1 decompressive laminectomy with bilateral facetecomies 4. L5-S1 Posterior non-segmental instrumentation 5. [place] of bone marrow from iliac crest 6. Utilization of microsurgical technique and operating microscope Same procedure as scheduled: Yes Indications: Patient has been having chronic back pain and worsening lumbar radiculopathy. Patient failed multiple conservative management with worsening pain weakness and numbness in her lower extremity.? Patient has been having difficulty performing activity of daily living.? After discussing risks benefits of treatment options, patient elected proceed with surgery. Surgeon: Joslyn Aponte Social Media Assistant: Thierno Goodson Click Yes if Unassisted: No Anesthesia Type: General Operative Notes Closure Type: primary Specimen(s): none sent Prosthetic devices, grafts, tissues, transplants, or devices: Globus MIS Screws, Rise cage Estimated Blood Loss (mL): 50 Blood products transfused: none Status at Discharge Cognitive/behavioral status at discharge: oriented Functional status at discharge: independent ambulation Overall status at discharge: patient is progressing back to baseline Exam Vital Signs (past 8 hours): - 12/28/21 04:36 12/28/21 08:30 Temperature 98.2 F 97.6 F Pulse Rate 73 73 Respiratory Rate 20 18 Blood Pressure 99/51 L 100/65 Pulse Oximetry 98 98 Oxygen Flow Rate 0 0 Fraction of Inspired Oxygen 25 Oxygen Delivery Method Nasal Cannula Oxygen Flow Rate 0 Narrative Exam Narrative: Pleasant 41-year-old female, resting comfortably in bed, no acute distress. Dressing demonstrates right lateral incision is saturated with blood, no surr ounding erythema or induration. Bilateral lower extremity: Motor functions are grossly intact, sensation is grossly intact to light touch, calves are soft and nontender to palpation. Her abdomen is mildly tender to palpation over the left lower quadrant. Objective Labs Result Diagrams: 12/28/21 08:13 Labs: Laboratory Results - last 24 hr 12/28/21 08:13 Hgb 11.5 L Hct 33.6 L PFSH Medical History Anesthesia Anxiety delivery delivered COVID-19 virus infection (10/11/21) Facet arthropathy, lumbar Gestational diabetes Herniated nucleus pulposus, L5-S1, right Migraines Spondylolisthesis Trigger finger of both hands Surgical History S/P epidural steroid injection S/P wisdom tooth extraction Status post Mohs surgery Status post tonsillectomy and adenoidectomy Family History Father Hypertension Mother Hypertension Skin carcinoma Grandmother Cancer Grandfather Cancer Hypertension Social History marital status: number of children: 3 household members: spouse and children Smoking Status: Former smoker alcohol intake: current substance use type: does not use Discharge Assessment & Plan Assessment and Plan Assessment: Stable status post L5-S1 TLIF -postop hypotension, mildly symptomatic Plan of Treatment: -mobilize with PT/OT. Limit bending, lifting, twisting x6 weeks. Weightbearing as tolerated with front wheeled walker/cane. -continue with multimodal pain management -encourage rectal suppository for abdominal discomfort, and or MiraLax -dressing change today mild call me if there are any active signs of bleeding. -hypotension: Encourage fluid intake, continue to monitor. -DC home today if cleared by PT/OT and hypotension symptoms are resolving. Discharge Plan Discharge Plan Patient Disposition: Home Discharge orders & Medications Discharge Orders: Discharge (Order); Ordered 12/28/21 Ordered By: Ade Baird Prescriptions: New docusate sodium 100 mg Capsule 100 mg PO BID PRN (Reason: Constipation from narcotic pain meds) Qty: 30 0RF oxycodone 5 mg Tablet See Rx Instructions .ROUTE .COMPLEX PRN (Reason: Pain, Severe (7-10)) Qty: 42 0RF Rx Instructions: Take 1-2 tablets by mouth every 4 hours as needed for moderate to severe postop pain polyethylene glycol 3350 [Miralax] 17 gram/dose powder 17 g PO BID PRN (Reason: constipation) Qty: 119 0RF Continued celecoxib [Celebrex] 200 mg capsule 200 mg PO DAILY PRN (Reason: Pain) melatonin 10 mg Tablet 10 mg PO BEDTIME PRN (Reason: Insomnia) ibuprofen 200 mg tablet 200 mg PO Q6H PRN (Reason: Pain (Scale Score 1-3)) Hold Instructions: Home Medication placed on hold at Doctor's office acetaminophen [Tylenol] 325 mg capsule 650 mg PO Q6H PRN (Reason: Pain (Scale Score 1-3)) cyclobenzaprine 10 mg tablet 10 mg PO BID PRN (Reason: muscle spasm) Qty: 60 1RF Follow up/Referrals: Alessandra Givens DO [Primary Care Provider] - Joslyn Aponte MD [Physician] - (Postop visit in 10-14 days) Diet/Activity/Treatments Diet: Diet as Tolerated Other treatments: Medications: -OTC Tylenol 500 mg 1 tablet every 4 hours as needed for pain/fever. Max 6 tablets per day. -Oxycodone 5 mg take 1-2 tablets every 4 hours as needed for moderate-severe pain (narcotic pain medication). -As needed medications: -Ducolax and /or MiraLax as needed for constipation from narcotic pain medications. -Pepcid AC as needed for stomach upset. Dressing/Wound care: -Keep dressing in place until postoperative follow-up office visit. -Okay to shower. Keep wound out of direct water stream. Can use PressNSeal plastic wrap to protect from shower stream. No soaking or submerging until all the scabs fall off (approximately 6 weeks). -Please call the office if dressing becomes wet, soiled, or saturated. Activities: -Limit bending, lifting, twisting x6 weeks. No deep bending (more than 90 degrees) or twisting at the waist. No lifting > 20 pounds. -Walk frequently. -Weight-bearing as tolerated. Use front wheeled walker, and progress to cane when safe. -Continue with home exercises as directed by your physical therapist. -Ice your incision as needed for pain/inflammation/swelling. Protect your skin with a folded pillowcase. -Incentive Spirometer (breathing device from hospital): 5-10xs every hour while awake for the first 1-2 weeks. Follow-up: -Follow-up with your surgeon or PA in the office in 10-14 days after surgery. -Follow-up with your surgeon 6 weeks postoperatively. Call the office if you have chest pain, shortness of breath, significant swelling that will not resolve with elevating, fever over 101?, significantly worsening pain, or are concerned you might need to go to the Emergency Room. [facility]: [phone] Skin/Wound/Dressing Care Report to your healthcare provider any signs of infection, such as:: chills, fever, night sweats and unusual redness Visit Report/Discharge Packet Instructions: DI for Transforaminal Lumbar Interbody Fusion Stand Alone Forms: Surgery Discharge Discharge Data Primary Care Provider: Alessandra Givens Attending Provider: Joslyn Aponte VTE Deep Vein Thrombosis/Pulmonary Embolism Present on Admission: No
[2021-12-28] MEDS: MAGNESIUM HYDROXIDE 30 ML UDC PO (12:42)
--- NOTE | 2021-12-28 13:55 | PT.IPTN ---
Current Diagnoses Spondylolisthesis, lumbosacral region (12/27/21) Other intervertebral disc displacement, lumbar region (12/27/21) Surgery Performed Operation Date: 12/27/21 07:45 Actual Procedures p L5-S1 TLIF - Joslyn Aponte MD Physical Therapy Treatment Note M2 PT-IP Current Condition Start: 12/28/21 11:14 Freq: Status: Active Protocol: Document 12/28/21 11:14 BC (Rec: 12/28/21 11:42 BC [id number]) Physical Therapy Current Condition Current Condition Evaluation Date 12/28/21 Treatment Diagnosis altered gait Onset Date 12/27/21 M3 PT-IP Subjective Start: 12/28/21 11:14 Freq: Status: Active Protocol: Document 12/28/21 13:37 KS (Rec: 12/28/21 14:26 KS [id number]) Subjective Physical Therapy Visit Type Type Treatment Note Visit Start Time 13:37 Visit Stop Time 13:55 Number of HEARING CONSULTANT Visits 1 Physical Therapy Visit Comments Patient Comments Pt agreeable to working w/ therapy. Therapy Pain Assessment Pain When Pain Assessed During Mobility Pain Present Pain Present Pain Reported M4 PT-IP Mobility and Gait Start: 12/28/21 11:14 Freq: Status: Active Protocol: Document 12/28/21 13:37 KS (Rec: 12/28/21 14:26 KS [id number]) PT-Bed Mobility Assessment Rolling Type of Rolling Log Rolling,Roll to Left Level of Assist Standby Assistance Supine to Sit Supine to Sit Standby Assistance Sit to Supine Sit to Supine Contact Guard Assistance Scooting Scooting to Edge of Bed Standby Assistance PT-Transfer Assessment Sit to and From Stand Sit to and from Stand Standby Assistance Equipment Transfer Assistive Device Gait Belt,Front Wheeled Walker Transfers Transfer Destination Bed,Toilet Transfer Technique Pt ambulated Transfer Ability Level of Assist Standby Assistance Comments Mobility Comments Pt exiting bathroom upon arrival. Ambulated to sink SBA w/ FWW to perform hand washing. Pt then reported slight dizziness, BP 94/49. Pt stand<>sit and then logroll back into bed CGA. BP 116/61 in supine. Pt then reported urge to have bowel movement again. Able to logroll and sidelying<>sit as well as scoot EOB SBA w/ c/o increased pain but denied dizziness. PT sit<>Stand and ambulated to bathroom, transferred to toilet SBA. Pt left in bathroom w/ call light in reach and RN aware. Gait Assessment Gait Gait Assistance Required: Standby Assistance Distance (Feet) 15 Assistive Devices Assistive Device Gait Belt,Front Wheeled Walker Gait Deviations General Gait Pattern Decreased Stride Length,Flexed Trunk Factors Limiting Gait Function Factors Limiting Gait Function Pain Comments Gait Comments Slight dizziness after ambulating short distance. PT-Balance Assessment Sitting Balance and Reactions Static Sitting Balance Ability Good Dynamic Sitting Balance Ability Good Standing Balance and Reactions Static Standing Balance Ability Good Dynamic Standing Balance Ability Good Device Used FWW M5 PT-IP Objective Assessments Start: 12/28/21 11:14 Freq: Status: Active Protocol: Document 12/28/21 11:14 BC (Rec: 12/28/21 11:42 BC [id number]) Orientation Orientation/Cognition Level of Alertness Alert Orientation Name,Age,Birthday,Month,Date, Year,Day of Week,Place, Situation Gross Range of Motion Upper Extremity ROM Assessment Within Functional Limits Lower Extremity ROM Assessment Within Functional Limits Strength Upper Extremity Strength Assessment Within Functional Limits Lower Extremity Strength Assessment Within Functional Limits Coordination Assessment Gross Coordination Gross Coordination WNL Sensation Assessment Sensation Gross Sensation WNL Muscle Tone Muscle Tone WNL Yes M6 PT-IP Treatment Start: 12/28/21 11:14 Freq: Status: Active Protocol: Document 12/28/21 13:37 KS (Rec: 12/28/21 14:26 KS [id number]) Physical Therapy Treatment Education Education Provided Precautions,Post-Op Packet, Safety Other Treatments Other Treatment Performed Pt confirmed spouse purchased FWW. M7 PT-IP Assessment and Plan Start: 12/28/21 11:14 Freq: Status: Active Protocol: Document 12/28/21 13:37 KS (Rec: 12/28/21 14:26 KS [id number]) PT Summary Assessment and Plan Potential Rehabilitation Potential Excellent Status of Condition at Evaluation Stable Summary Impairments Pain,Bed Mobility,Transfers, Gait,Activity Tolerance Progress Towards Goals Progressing Toward Goals Assessment Summary Pt still w/ low BP w/ mild symptoms this PM. Only requiring SBA to CGA throughout treatment and had good carryover of logroll and able to recall precautions. Limited treatment d/t pt needing to have additional bowel movement as well as low BP and fatigue. Pt has been cleared when medically stable, however feels fearful to return home due to current symptoms (slight dizziness, fatigue, pain, and frequent urge to urinate - RN aware). Will assess pt in AM. Goals Bed Mobility Goal Independent Transfer Goal Independent Gait Goal Independent Gait Distance 200 Other Goals Pt to ascend/descend full flight of stairs with SBA Days to Meet Goals 3 Frequency of Treatment Frequency Of Treatment Twice a Day Treatment Plan Physical Therapy Treatment Plan Bed Mobility Training,Transfer Training,Gait Training, Therapeutic Exercise,Post Op Education,Discharge Planning, Neuromuscular Re-ed Precautions Lumbar Precautions Log Roll,No Twisting,Limit Bending,Lifting Restriction of 10 lbs,Gait Belt above Incisional Area Recommendations To Nursing Amount of Assist Needed Standby Assistance Discharge Recommendations PT Discharge Recommendations Home with Assistance Equipment Needed for Home Before Front wheeled walker - spouse Discharge will look into obtaining one Transportation Needs at Discharge Private Vehicle
[2021-12-28 18:10] VITALS: BP 119/63; PULSE 81; RESP 18; TEMP 36.2; O2SAT 100
[2021-12-28] MEDS: HYDROMORPHONE 0.5 MG INJ IV (20:20)
[2021-12-28] MEDS: SENNOSIDES 8.6 MG TABLET 17.2 MG PO (20:21)
[2021-12-28] MEDS: hydrOXYzine pamoate 25 MG CAPSULE PO (20:21)
[2021-12-28 21:00] VITALS: BP 106/50; PULSE 79; RESP 16; TEMP 37.1; O2SAT 100
[2021-12-29] MEDS: HYDROMORPHONE 0.5 MG INJ IV (00:08)
[2021-12-29] MEDS: OXYCODONE IR 5 MG TABLET 10 MG PO ×3 (04:47→11:24)
[2021-12-29 08:10] VITALS: BP 101/57; PULSE 69; RESP 16; TEMP 36.1; O2SAT 99
[2021-12-29] MEDS: ACETAMINOPHEN 325 MG TABLET 650 MG PO (08:38)
[2021-12-29] MEDS: DOCUSATE 100 MG CAPSULE PO (08:38)
--- NOTE | 2021-12-29 09:37 | PT.IPTN ---
Current Diagnoses Spondylolisthesis, lumbosacral region (12/27/21) Other intervertebral disc displacement, lumbar region (12/27/21) Surgery Performed Operation Date: 12/27/21 07:45 Actual Procedures p L5-S1 TLIF - Joslyn Aponte MD Physical Therapy Treatment Note M2 PT-IP Current Condition Start: 12/28/21 11:14 Freq: Status: Active Protocol: Document 12/28/21 11:14 BC (Rec: 12/28/21 11:42 BC [id number]) Physical Therapy Current Condition Current Condition Evaluation Date 12/28/21 Treatment Diagnosis altered gait Onset Date 12/27/21 M3 PT-IP Subjective Start: 12/28/21 11:14 Freq: Status: Active Protocol: Document 12/29/21 09:18 KS (Rec: 12/29/21 11:47 KS [id number]) Subjective Physical Therapy Visit Type Type Treatment Note Visit Start Time 09:18 Visit Stop Time 09:37 Total Visit Minutes 19 Notes Spouse in room. Number of MEDICAL EQUIPMENT REPAIR TECHNICIAN Visits 2 Physical Therapy Visit Comments Patient Comments Pt agreeable to working w/ therapy. Therapy Pain Assessment Pain When Pain Assessed During Mobility Pain Present Pain Present Pain Reported M4 PT-IP Mobility and Gait Start: 12/28/21 11:14 Freq: Status: Active Protocol: Document 12/29/21 09:18 KS (Rec: 12/29/21 11:47 KS [id number]) PT-Transfer Assessment Sit to and From Stand Sit to and from Stand Standby Assistance Equipment Transfer Assistive Device Gait Belt,Front Wheeled Walker Transfers Transfer Destination Chair,Toilet Transfer Technique Pt ambulated Transfer Ability Level of Assist Standby Assistance Comments Mobility Comments Pt in chair upon arrival from therapy w/ spouse in room. Pt states feeling better this morning but still experienced some dizziness while standing this AM. Pts BP sittin/ 64. Pt scooted EOC and sit<> Stand SBA w/ FWW, BP reassessed following 2 min standing and 116/67. Pt ambulated ~40 ft and reported decreased pain while standing but still some lightheadedness . BP taken again and 101/63. Pt left in chair w/ all needs in reach. Gait Assessment Gait Gait Assistance Required: Standby Assistance Distance (Feet) 40 Assistive Devices Assistive Device Gait Belt,Front Wheeled Walker Gait Deviations General Gait Pattern Decreased Stride Length, Decreased Feet Clearance Factors Limiting Gait Function Factors Limiting Gait Function Pain Comments Gait Comments Slight dizziness after ambulating short distance. PT-Balance Assessment Sitting Balance and Reactions Static Sitting Balance Ability Good Dynamic Sitting Balance Ability Good Standing Balance and Reactions Static Standing Balance Ability Good Dynamic Standing Balance Ability Good Device Used FWW M5 PT-IP Objective Assessments Start: 12/28/21 11:14 Freq: Status: Active Protocol: Document 12/28/21 11:14 BC (Rec: 12/28/21 11:42 BC [id number]) Orientation Orientation/Cognition Level of Alertness Alert Orientation Name,Age,Birthday,Month,Date, Year,Day of Week,Place, Situation Gross Range of Motion Upper Extremity ROM Assessment Within Functional Limits Lower Extremity ROM Assessment Within Functional Limits Strength Upper Extremity Strength Assessment Within Functional Limits Lower Extremity Strength Assessment Within Functional Limits Coordination Assessment Gross Coordination Gross Coordination WNL Sensation Assessment Sensation Gross Sensation WNL Muscle Tone Muscle Tone WNL Yes M6 PT-IP Treatment Start: 12/28/21 11:14 Freq: Status: Active Protocol: Document 12/29/21 09:18 KS (Rec: 12/29/21 11:47 KS [id number]) Physical Therapy Treatment Education Education Provided Precautions,Post-Op Packet, Safety Other Treatments Other Treatment Performed Pt confirmed spouse purchased FWW. Discussed outpatient PT. M7 PT-IP Assessment and Plan Start: 12/28/21 11:14 Freq: Status: Active Protocol: Document 12/29/21 09:18 KS (Rec: 12/29/21 11:47 KS [id number]) PT Summary Assessment and Plan Potential Rehabilitation Potential Excellent Status of Condition at Evaluation Stable Summary Impairments Pain,Bed Mobility,Transfers, Gait,Activity Tolerance Progress Towards Goals Progressing Toward Goals Assessment Summary Pt still SBA but states she has been moving independently around room although present. Able to recall spinal precautions. Still limited by slight dizzness, however BP 100s/60s throughout treatment. Pt thinks dizziness is coorelated w/ medications, RN aware. Pt will benefit from outpatient therapy when appropriate to improve strength and stability. Goals Bed Mobility Goal Independent Transfer Goal Independent Gait Goal Independent Gait Distance 200 Other Goals Pt to ascend/descend full flight of stairs with SBA Days to Meet Goals 3 Frequency of Treatment Frequency Of Treatment Twice a Day Treatment Plan Physical Therapy Treatment Plan Bed Mobility Training,Transfer Training,Gait Training, Therapeutic Exercise,Post Op Education,Discharge Planning, Neuromuscular Re-ed Precautions Lumbar Precautions Log Roll,No Twisting,Limit Bending,Lifting Restriction of 10 lbs,Gait Belt above Incisional Area Recommendations To Nursing Amount of Assist Needed Standby Assistance Discharge Recommendations PT Discharge Recommendations Home with Assistance Transportation Needs at Discharge Private Vehicle
[2021-12-29] MEDS: hydrOXYzine pamoate 25 MG CAPSULE PO (11:22)
--- NOTE | 2021-12-29 11:35 | OT.IPNOTE ---
Pt already showered and per pt able to stand with use of grab bar at home. Pt's bandage on her back coming off and able to notify her nurse.
--- NOTE | 2021-12-29 13:01 | PC.NURSE ---
Pt is A&Ox3, VSS, afebrile on RA. She has slightly soft BP, and reports some dizziness on standing. She appears to feel better as the morning progresses. PT works with patient and clears her for discharge home with . at bedside supportive. She verbalizes understanding of discharge activity, site care, s/sx of infection or complications, as well as medications and follow up appointments. She reports pain is tolerabel to 4/10 with prn pain medications. Her dressing had old dried blood (minimal amount) and dressing was changed, Steri strips to [place] C/D/I. She is escorted via w/ch with all of her belongings to private vehicle with her at approximately 1200 p.m.
== END 2021-12-29 12:00 | disposition home or self-care (01) ==
LOC: OR 12-30 00:18 → AC 12-30 00:18
PROVIDERS: Physician Assistant; Admitting Provider Orthopaedic Surgery Orthopaedic Surgery of the Spine; PCP Family Medicine; Referring Provider Orthopaedic Surgery Orthopaedic Surgery of the Spine; Visit Provider Orthopaedic Surgery Orthopaedic Surgery of the Spine
PROC: (CPT 22633; principal; 2021-12-27 07:45)
DX: M43.17 Spondylolisthesis, lumbosacral region; M48.07 Spinal stenosis, lumbosacral region; I95.81 Postprocedural hypotension; Z87.891 Personal history of nicotine dependence; M51.17 Intervertebral disc disorders with radiculopathy, lumbosacral region
CPT/HCPCS: 22633; 22853; 22840; 20939; 20936; 63052; 36415; 72100; 76000; 81025; 82962; 85014; 85018; 94762; 97161; 97165; 97530; 97535; C1776; G0378; C9290; J0131; J0330; J0690; J1100; J1170; J2250; J2405; J2704; J3010; J3410